=== PATIENT | female | born 1950 | race Caucasian/White ===

== ENCOUNTER 2019-04-08 10:40 | Inpatient (IN) | payer OTHER ==
[~2019-04-08] VITALS: Ht 170.2 cm; Wt 103.4 kg
[~2019-04-08 10:40] MED LIST: AMILODIPINE PO; DICLO PO; HYDROCHLOROTHIA25 MG PO; LIPOFLAVOVIT PO; LYRICA PO; PREVASTATIN PO; RANITIDINE HCL150 M1 PO; TOPROL XL50 M1 PO; [UNRECOGNIZED DRUG - OTHER] PO
[2019-04-16] MEDS ORDERED: IRBESARTAN-HCT1 EAC1 PO (08:04)
[2019-04-16] MEDS ORDERED: PRAVASTATIN SOD20 MG PO (08:05)
[2019-04-16] MEDS ORDERED: LYRICA50 MG PO (08:06)
[2019-04-16] MEDS ORDERED: DICLOFENAC SOD100 GM TOP (08:11)
[2019-04-16] MEDS ORDERED: ALPHA LIPOIC A300 MG PO (08:21)
[2019-04-16] MEDS ORDERED: NORVASC10 MG PO (08:32)
[2019-04-16] MEDS ORDERED: PERCOCET 5-3251 EACH PO (09:27)
[2019-04-16] MEDS ORDERED: COLACE100 MG PO (09:27)
[2019-04-16] MEDS ORDERED: CLONAZEPAM0.5 MG PO (09:27)
[2019-04-16] MEDS ORDERED: BACTRIM DS TAB1 EACH PO (09:27)
[2019-04-16] MEDS ORDERED: LYRICA150 MG PO (09:27)
== END 2019-04-17 19:39 | DRG 520 ==
LOC: O/R 04-16 06:32 → SURH 04-16 06:32 → RECOVERY 04-16 07:00 → SURH 04-16 10:18 → RECOVERY 04-16 11:45 → SURH 04-17 10:13
PROVIDERS: ADMIT Orthopaedic Surgery Orthopaedic Surgery of the Spine
PROC: 0SB20ZZ Excision of Lumbar Vertebral Disc, Open Approach (ICD-10-PCS; 2019-04-16)
PROC: 00NY0ZZ Release Lumbar Spinal Cord, Open Approach (ICD-10-PCS; principal; 2019-04-16 07:00)
DX: M48.062 Spinal stenosis, lumbar region with neurogenic claudication (principal); M43.16 Spondylolisthesis, lumbar region; I10 Essential (primary) hypertension

== ENCOUNTER 2021-01-04 10:00 | Inpatient (IN) | payer OTHER ==
[~2021-01-04] VITALS: Ht 170.2 cm; Wt 105.2 kg
[~2021-01-04 10:00] MED LIST changes: +ALPHA LIPOIC A300 MG PO; +BACTRIM DS TAB1 EACH PO; +CLONAZEPAM0.5 MG PO; +COLACE100 MG PO; +DICLOFENAC SOD100 GM TOP; +IRBESARTAN-HCT1 EAC1 PO; +LYRICA150 MG PO; +LYRICA50 MG PO; +NORVASC10 MG PO; +PERCOCET 5-3251 EACH PO; +PRAVASTATIN SOD20 MG PO
[2021-01-04] MEDS ORDERED: CHLORTHALIDONE50 MG (12:16)
[2021-01-04] MEDS ORDERED: AVAPRO300 MG (12:16)
[2021-01-04] MEDS ORDERED: TOPROL XL50 M1 (12:16)
[2021-01-04] MEDS ORDERED: ALPHA LIPOIC A600 MG (12:17)
[2021-01-04] MEDS ORDERED: VITAMINA C (12:17)
[2021-01-04] MEDS ORDERED: [UNRECOGNIZED DRUG - OTHER] (12:17)
[2021-01-04] MEDS ORDERED: RELAFEN (12:18)
[2021-01-04] MEDS ORDERED: DOLOGESIC-DF 51 EACH (12:18)
[2021-01-04] MEDS ORDERED: CHILDREN'S ASPI81 MG (12:18)
[2021-01-04] MEDS ORDERED: BCOMPLEX (12:18)
[2021-01-04] MEDS ORDERED: GABAPENTIN (12:19)
[2021-01-04] MEDS ORDERED: DICLOFENAC-MIS1 EAC1 (12:19)
[2021-01-11] MEDS ORDERED: COLACE100 MG PO (13:30)
[2021-01-11] MEDS ORDERED: DIAZEPAM5 MG PO (13:30)
[2021-01-11] MEDS ORDERED: PERCOCET 5-3251 EACH PO (13:30)
== END 2021-01-12 12:04 | disposition home or self-care (01) | DRG 473 ==
LOC: O/R 01-11 05:06 → SURG 01-11 05:06 → SURH 01-11 07:00 → SURG 01-11 16:56
PROVIDERS: ADMIT Orthopaedic Surgery Orthopaedic Surgery of the Spine; ATTEND Orthopaedic Surgery Orthopaedic Surgery of the Spine
PROC: 0RT30ZZ Resection of Cervical Vertebral Disc, Open Approach (ICD-10-PCS; principal; 2021-01-12)
PROC: XRG20F3 Fusion of 2 or more Cervical Vertebral Joints using Radiolucent Porous Interbody Fusion Device, Open Approach, New Technology Group 3 (ICD-10-PCS; 2021-01-12)
PROC: 0PS304Z Reposition Cervical Vertebra with Internal Fixation Device, Open Approach (ICD-10-PCS; 2021-01-12)
PROC: 07DS0ZX Extraction of Vertebral Bone Marrow, Open Approach, Diagnostic (ICD-10-PCS; 2021-01-12)
DX: M50.022 Cervical disc disorder at C5-C6 level with myelopathy (principal); M50.023 Cervical disc disorder at C6-C7 level with myelopathy; Z88.0 Allergy status to penicillin